=== PATIENT | female | born 1990 | race African-American/Black ===

== ENCOUNTER 2020-06-01 09:19 | Inpatient (IN) | payer MEDICAID, OTHER ==
[~2020-06-01] VITALS: Ht 165.1 cm; Wt 104.3 kg
[2020-06-01] MEDS ORDERED: SODIUM CHLORIDE 0.9% 500 ML IV ONE (10:00)
[2020-06-01 10:03] LABS: Alcohol, Urine < 3.0 mg/dL (0-10); Amphetamine Screen, Urine POSITIVE (NEGATIVE); Barbiturate Scree,Urine NEGATIVE (NEGATIVE); Benzodiazephine Screen, Urine NEGATIVE (NEGATIVE); Cannabinoid Screen, Urine POSITIVE (NEGATIVE); Cocaine Screen, Urine NEGATIVE (NEGATIVE); Opiate Scree,Urine NEGATIVE (NEGATIVE); Phencyclidine Screen, Urine NEGATIVE (NEGATIVE)
[2020-06-01 10:08] LABS: Basophils # (auto) 0.1 10 ^3/uL (0-0.2); Basophils % (auto) 0.5 % (0.0-2.0); Eosinophils # (auto) 0.1 10 ^3/uL (0-0.8); Eosinophils % (auto) 0.8 % (0.0-7.0); Hematocrit 39.5 % (36.0-46.0); Hemoglobin 13.7 g/dL (12.2-16.2); Lymphocytes # (auto) 1.7 10 ^3/uL (0.4-5.4); Lymphocytes % (auto) 18.2 % (10.0-50.0); Mean Corpuscular Hemoglobin 28.6 pg (28.0-32.0); Mean Corpuscular Hgb Conc. 34.7 g/dL (32.0-36.0); Mean Corpuscular Volume 82.4 fL (80.0-100.0); Monocytes # (auto) 0.7 10 ^3/uL (0-1.3); Monocytes % (auto) 7.8 % (0.0-12.0); Neutrophils # (auto) 6.8 10 ^3/uL (1.6-8.6); Neutrophils % (auto) 72.7 % (37.0-80.0); Nucleated Red Blood Cells % 0.1 %; Platelet Count (auto) 280 10^3/uL (140-450); Red Blood Cells 4.79 10^6/uL (4.0-5.20); Red Cell Distribution Width 12.8 % (11.8-14.3); White Blood Cell 9.4 10^3/uL (4.4-10.8)
[2020-06-01 10:10] LABS: Urine Bacteria NONE SEEN /hpf (None Seen); Urine Blood TRACE /uL (Negative); Urine WBC 9 /hpf (0 - 5)
[2020-06-01 10:26] LABS: Albumin 3.2 g/dL (3.4-5.0); Potassium 3.8 mmol/L (3.5-5.1)
[2020-06-01] MEDS ORDERED: KETOROLAC TROMETH 30 MG/ML 1ML VIAL IV ONE (10:30)
[2020-06-01 10:33] LABS: Bilirubin, Total 0.4 mg/dL (0.2-1.0); Total Protein 8.2 g/dL (6.4-8.2)
[2020-06-01] MEDS ORDERED: cefTRIAXone 1GM/50ML D5W 50 ML IV ONE (11:30)
[2020-06-01] MEDS ORDERED: ONDANSETRON HCL 4 MG/2 ML VIAL IV PRN (15:15)
[2020-06-01] MEDS: D5W/SOD CHL 0.45%/KCL 20MEQ 1,000 ML IV SCH ×2 (15:30→19:47)
[2020-06-01 18:00] VITALS: BP 100/59
[2020-06-01 18:53] LABS: INR 1.03 (0.9-1.15)
[2020-06-01] MEDS: metroNIDAZOLE 500MG/100ML 100 ML IV SCH (21:29)
[2020-06-01] MEDS: MORPHINE SULF INJ 2 MG/ML SYRINGE 1ML IV PRN (21:30)
[2020-06-01 22:00] VITALS: BP 97/48
[2020-06-02 05:00] VITALS: BP 111/68
[2020-06-02] MEDS: metroNIDAZOLE 500MG/100ML 100 ML IV SCH ×3 (06:25→22:00)
[2020-06-02 06:58] LABS: BUN/Creatinine Ratio 14.1; Calcium 8.5 mg/dL (8.5-10.1); Potassium 3.8 mmol/L (3.5-5.1)
[2020-06-02 07:15] LABS: INR 1.02 (0.9-1.15); Partial Thromboplastin Time 26.2 sec (23.0-31.2)
[2020-06-02] MEDS: D5W/SOD CHL 0.45%/KCL 20MEQ 1,000 ML IV SCH ×3 (07:55→23:25)
[2020-06-02] MEDS: cefTRIAXone 1GM/50ML D5W 50 ML IV SCH (08:53)
[2020-06-02 09:00] VITALS: BP 119/59
[2020-06-02] MEDS: PANTOPRAZOLE 40 MG/10 ML VIAL INJ IV SCH (09:53)
[2020-06-02] MEDS ORDERED: levoFLOXacin 500MG 100 ML IV ONE (12:54)
[2020-06-02 13:00] VITALS: BP 113/66
[2020-06-02] MEDS ORDERED: ePHEDrine SULFATE 50 MG/ML AMP IV ONE (13:03)
[2020-06-02] MEDS ORDERED: DexAMETHasone SOD PHOS 10MG/1ML VIAL INJ IV ONE (13:03)
[2020-06-02] MEDS ORDERED: NEOSTIGMINE 1 MG/ML INJ (10mg/10ML VIAL) IV ONE (13:03)
[2020-06-02] MEDS ORDERED: GLYCOPYRROLATE 0.2 MG/ML 1ML VIAL IV ONE (13:03)
[2020-06-02] MEDS ORDERED: ONDANSETRON HCL 4 MG/2 ML VIAL IV ONE (13:03)
[2020-06-02] MEDS ORDERED: PROPOFOL 10 MG/ML 20 ML IV ONE (13:03)
[2020-06-02] MEDS ORDERED: MIDAZOLAM HCL 1MG/1ML-2 ML VIAL ONE (13:06)
[2020-06-02] MEDS ORDERED: HYDROmorphone HCL 2 MG/ML VL ONE (13:07)
[2020-06-02] MEDS ORDERED: ROCURONIUM 10MG/ML 10ML VIAL IV ONE (13:09)
[2020-06-02] MEDS ORDERED: GLYCOPYRROLATE 0.2 MG/ML 1ML VIAL ONE (13:43)
[2020-06-02] MEDS ORDERED: METOCLOPRAMIDE HCL 5MG/ml INJ 2ml VIAL IV PRN (14:15)
[2020-06-02] MEDS ORDERED: HYDROmorphone HCL 2 MG/ML VL IV PRN ×2 (14:15)
[2020-06-02] MEDS ORDERED: ePHEDrine SULFATE 50 MG/ML AMP IV PRN (14:15)
[2020-06-02] MEDS ORDERED: ONDANSETRON HCL 4 MG/2 ML VIAL IV PRN (14:15)
[2020-06-02] MEDS ORDERED: KETOROLAC TROMETH 30 MG/ML 1ML VIAL IV ONE (14:15)
[2020-06-02 17:00] VITALS: BP 125/51
[2020-06-02] MEDS: MORPHINE SULF INJ 2 MG/ML SYRINGE 1ML IV PRN (20:35)
[2020-06-02 22:00] VITALS: BP 103/55
[2020-06-03] MEDS: MORPHINE SULF INJ 2 MG/ML SYRINGE 1ML IV PRN ×3 (02:24→18:33)
[2020-06-03 05:00] VITALS: BP 115/57
[2020-06-03 05:39] LABS: Eosinophils # (auto) 0 10 ^3/uL (0-0.8); Lymphocytes # (auto) 1.1 10 ^3/uL (0.4-5.4); Lymphocytes % (auto) 10.4 % (10.0-50.0); Monocytes # (auto) 0.7 10 ^3/uL (0-1.3)
[2020-06-03 05:42] LABS: Basophils # (auto) 0 10 ^3/uL (0-0.2); Basophils % (auto) 0.4 % (0.0-2.0); Monocytes % (auto) 6.6 % (0.0-12.0); Neutrophils # (auto) 8.6 10 ^3/uL (1.6-8.6); Neutrophils % (auto) 82.6 % (37.0-80.0)
[2020-06-03] MEDS: metroNIDAZOLE 500MG/100ML 100 ML IV SCH ×3 (06:36→22:00)
[2020-06-03 06:56] LABS: Hematocrit 39.7 % (36.0-46.0); Hemoglobin 13.8 g/dL (12.2-16.2); Mean Corpuscular Hemoglobin 28.2 pg (28.0-32.0); Mean Corpuscular Hgb Conc. 34.7 g/dL (32.0-36.0); Mean Corpuscular Volume 81.2 fL (80.0-100.0); Platelet Count (auto) 279 10^3/uL (140-450); Red Blood Cells 4.89 10^6/uL (4.0-5.20); Red Cell Distribution Width 12.5 % (11.8-14.3); White Blood Cell 13.1 10^3/uL (4.4-10.8)
[2020-06-03 08:22] VITALS: BP 118/54
[2020-06-03] MEDS: D5W/SOD CHL 0.45%/KCL 20MEQ 1,000 ML IV SCH ×4 (08:55→23:06)
[2020-06-03] MEDS: cefTRIAXone 1GM/50ML D5W 50 ML IV SCH (09:00)
[2020-06-03] MEDS: PANTOPRAZOLE 40 MG/10 ML VIAL INJ IV SCH (09:00)
[2020-06-03] MEDS ORDERED: ZOLPIDEM TARTRATE 5 MG TAB PO PRN (10:30)
[2020-06-03 12:30] VITALS: BP 110/56
[2020-06-03 17:09] VITALS: BP 114/64
[2020-06-03 22:00] VITALS: BP 116/70
[2020-06-04 05:00] VITALS: BP 98/53
[2020-06-04] MEDS: metroNIDAZOLE 500MG/100ML 100 ML IV SCH (06:31)
[2020-06-04 08:07] VITALS: BP 104/62
[2020-06-04] MEDS: D5W/SOD CHL 0.45%/KCL 20MEQ 1,000 ML IV SCH (08:27)
[2020-06-04] MEDS: PANTOPRAZOLE 40 MG/10 ML VIAL INJ IV SCH (08:38)
[2020-06-04] MEDS: cefTRIAXone 1GM/50ML D5W 50 ML IV SCH (08:38)
[2020-06-04 11:27] VITALS: BP 104/62
== END 2020-06-04 12:30 | disposition home or self-care (01) | DRG 263 ==
LOC: ER 09:19 → OVERFLOW 09:20 → WEST WING 16:48
PROVIDERS: ADMIT Nurse Practitioner Acute Care; ATTEND Family Medicine
PROC: 0FT44ZZ Resection of Gallbladder, Percutaneous Endoscopic Approach (ICD-10-PCS; principal; 2020-06-02 13:03)
DX: K80.00 Calculus of gallbladder with acute cholecystitis without obstruction (principal); E66.9 Obesity, unspecified; Z68.1 Body mass index [BMI] 19.9 or less, adult; F12.10 Cannabis abuse, uncomplicated; Z20.822 Contact with and (suspected) exposure to COVID-19; Z87.891 Personal history of nicotine dependence; K59.00 Constipation, unspecified; Z88.8 Allergy status to other drugs, medicaments and biological substances; N39.0 Urinary tract infection, site not specified
CPT/HCPCS: 36415; 76705; 80048; 80053; 80307; 81001; 81025; 82247; 83605; 83690; 85025; 85610; 85730; 86850; 86900; 86901; 87426; C9113; G0378; J0696; J1100; J1885; J1956; J2250; J2405; J2704; J3490